=== PATIENT | male | born 1935 | race Caucasian/White ===

== ENCOUNTER 2016-04-12 06:42 | Day surgery (SDC) | payer MEDICARE ==
[2016-04-12] MEDS ORDERED: Sodium Chloride 0.9% 1,000 ML IV SCH (07:30)
[2016-04-12] MEDS ORDERED: fentaNYL 100 MCG/2 ML SDV ONE (07:36)
[2016-04-12] MEDS ORDERED: Propofol 200 MG/20 ML SDV ONE (07:36)
[2016-04-12 10:05] VITALS: BP 136/70
--- NOTE | 2016-04-15 08:08 | OR ---
DATE OF PROCEDURE: 04/12/2016 PROCEDURE: Colonoscopy. FINDINGS: 1. Normal colonoscopy. 2. No evidence of old or new blood. 3. Three diverticula noted throughout the colon. COMPLICATIONS: None. L[employer] COMMISSIONER: None. PREOPERATIVE DIAGNOSIS: GI bleeding. POSTOPERATIVE DIAGNOSIS: GI bleeding. PROCEDURE IN DETAIL: The patient was placed in left lateral decubitus position. Digital rectal exam was performed without abnormality. The scope was introduced and advanced atraumatically to the ileocecal valve. The patient had a large amount of some retained liquid and solid stool. Suction irrigation was performed to maximize visualization more proximally to 90% of luminal surface. As the scope was brought back, there was no blood. No old or new blood. The patient had 3 diverticula noted sporadically throughout the colon. No masses. No polyps. No abnormalities on retroflexion. The patient tolerated the procedure well. Dustin Gonzales MD /[id number]
== END 2016-04-12 10:10 | disposition home or self-care (01) ==
LOC: JP.SDS 06:42
PROVIDERS: ATTEND Surgery
DX: K57.30 Diverticulosis of large intestine without perforation or abscess without bleeding (principal); I10 Essential (primary) hypertension; Z88.8 Allergy status to other drugs, medicaments and biological substances; E11.9 Type 2 diabetes mellitus without complications; E78.5 Hyperlipidemia, unspecified; K21.9 Gastro-esophageal reflux disease without esophagitis
CPT/HCPCS: 45378; J2704; J3010; J7040